=== PATIENT | male | born 1940 | race Caucasian/White ===

== ENCOUNTER → 2021-05-14 | Day surgery (SDC) | payer OTHER ==
[~2021-05-14] VITALS: Ht 180.3 cm; Wt 64.0 kg
[~2021-05-14] MED LIST: ASPIRIN EC81 MG PO; BENAZEPRIL HCL20 MG PO; ELIQUIS5 MG PO; FOLIC ACID1 MG PO; IRON PO; LIPITOR20 MG PO; LOPRESSOR25 MG PO; NORCO 5-325 TA1 EACH PO; NORVASC5 MG PO; OMEPRAZOLE40 MG PO; OS-CAL500 MG PO; VIBRAMYCIN100 MG PO; VITAMIN B12 SC; VITAMIN D1000 UNIT PO
== END | disposition home or self-care (01) ==
LOC: FAS 07:38
DX: K31.9 Disease of stomach and duodenum, unspecified (principal); D64.9 Anemia, unspecified; K29.70 Gastritis, unspecified, without bleeding; T70.29XA Other effects of high altitude, initial encounter; R13.10 Dysphagia, unspecified; K21.9 Gastro-esophageal reflux disease without esophagitis; I10 Essential (primary) hypertension; M19.90 Unspecified osteoarthritis, unspecified site; Z79.01 Long term (current) use of anticoagulants; Z79.899 Other long term (current) drug therapy; Z88.8 Allergy status to other drugs, medicaments and biological substances; Z86.73 Personal history of transient ischemic attack (TIA), and cerebral infarction without residual deficits; Z87.891 Personal history of nicotine dependence
CPT/HCPCS: J2704; J7120

== ENCOUNTER 2022-01-08 20:17 | Emergency (ER) | payer OTHER ==
[2022-01-08 21:29] LABS: BASOPHIL 0.5 % (0-2); EOSINOPHIL 0.1 % (0-7); HCT 40.4 % (42.0-52.0); LYMPHOCYTE 19.6 % (15-48); MCH 31.6 pg (25.0-31.0); MCHC 32.2 g/dL (32.0-36.0); MCV 98.1 fL (78.0-100.0); MONOCYTE 18.4 % (0-12); MPV 9.8 fL (6.0-9.5); NEUTROPHIL 60.5 % (41-80); NRBC 0; PLT 146 K/uL (150-400); RBC 4.12 M/uL (4.70-6.00); RDW 15.9 % (11.5-14.0)
[2022-01-08 21:49] LABS: ALBUMIN 3.7 g/dL (3.4-5.0); BILIRUBIN - TOTAL 0.7 mg/dL (0.2-1.0); BUN/CREAT RATIO (CALC) 21.6 RATIO; CREATININE 1.02 mg/dL (0.67-1.17); GLOBULIN (CALCULATION) 3.5 g/dL; POTASSIUM 4.7 mmol/L (3.5-5.1); TOTAL PROTEIN 7.2 g/dL (6.4-8.2)
[2022-01-08 21:56] LABS: BILIRUBIN NEGATIVE (NEGATIVE); BLOOD TRACE-INTACT Ery/uL (NEGATIVE); CLARITY CLEAR (CLEAR); COLOR YELLOW (YELLOW); GLUCOSE (U) NORMAL (NORMAL); LEUKOCYTES NEGATIVE Leu/uL (NEGATIVE); NITRITE NEGATIVE (NEGATIVE); PROTEIN NEGATIVE (NEGATIVE); SPECIFIC GRAVITY <=1.005 (1.001-1.030); UROBILINOGEN 0.2 mg/dL (0.2-1.0)
[2022-01-08 22:07] LABS: BACTERIA TRACE
[2022-01-08 22:39] LABS: MAGNESIUM 1.8 mg/dL (1.8-2.4)
== END 2022-01-09 00:05 | disposition home or self-care (01) ==
LOC: FER 20:17
PROVIDERS: Internal Medicine
DX: R51.9 Headache, unspecified (principal); R20.2 Paresthesia of skin; R77.8 Other specified abnormalities of plasma proteins; R31.9 Hematuria, unspecified; I10 Essential (primary) hypertension; Z86.73 Personal history of transient ischemic attack (TIA), and cerebral infarction without residual deficits; Z88.8 Allergy status to other drugs, medicaments and biological substances
CPT/HCPCS: 36415; 70450; 71260; 80053; 81001; 83735; 84145; 84439; 84443; 84484; 85025; 93005; Q9967